=== PATIENT | male | born 1980 ===

== ENCOUNTER 2017-03-27 20:03 | Emergency (ER) | payer SELFPAY ==
[~2017-03-27] VITALS: Ht 172.7 cm; Wt 60.0 kg
[2017-03-27 20:04] VITALS: BP 133/88; PULSE 92; RESP 16; TEMP 98.3; O2SAT 100
--- NOTE | 2017-03-27 21:23 | PD ---
Physical Exam Date Seen by Provider: Mar 27, 2017 Time Seen by Provider: 21:20 Narrative 36 y/o male here with 1 week of worsening chest pains, weakness, chills and SOB. Recently evicted and living on [address] . Pain is 5/10 States no appetite. reports 2 episodes vomiting 2 days ago. States he is depressed but not suicidal. Vital signs reviewed. Patient stable. Awaiting Bed placement. Data Data Last Documented VS Vital Signs Date Time Temp Pulse Resp B/P Pulse Ox O2 Delivery O2 Flow Rate FiO2 03/27/17 20:04 98.3 92 16 133/88 100 Room Air [facility] Medical Record Reviewed: Yes Supervised Visit with JAMES: Yes Scripts No Active Prescriptions or Reported Meds Condition: Stable [place] Mar 27, 2017 21:23
[2017-03-27 23:25] VITALS: BP 115/78; PULSE 73; RESP 18; O2SAT 97
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
[2017-03-27] MEDS ORDERED: ASPIRIN 81 MG CHEW TAB PO ONE (23:30)
[2017-03-27] MEDS ORDERED: SODIUM CHLORIDE 0.9% FLUSH 10 ML FLUSH IVF PRN (23:30)
[2017-03-27] MEDS ORDERED: SODIUM CHLOR 0.9% 1000 ML INJ 1,000 ML IV ONE (23:30)
[2017-03-27 23:45] VITALS: RESP 18; O2SAT 98
[2017-03-27 23:49] LABS: BASOPHIL # 0.1 TH/MM3 (0-0.2); BASOPHIL % 0.9 % (0.0-2.0); EOSINOPHIL # 0.2 TH/MM3 (0-0.4); HEMATOCRIT 40.8 % (39.0-51.0); HEMO FLAGS DIFF FINAL; LYMPH % 27.4 % (9.0-44.0); MEAN CELL VOLUME 85.8 FL (80.0-100.0); MEAN CORPUSCULAR HEMOGLOBIN 29.5 PG (27.0-34.0); MEAN CORPUSCULAR HGB CONC 34.4 % (32.0-36.0); MONO % 13.4 % (0.0-8.0); NEUT % 55.3 % (16.0-70.0); PLATELET COUNT 277 TH/MM3 (150-450); RED BLOOD COUNT 4.76 MIL/MM3 (4.50-5.90); RED CELL DISTRIBUTION WIDTH 13.6 % (11.6-17.2); WHITE BLOOD COUNT 7.2 TH/MM3 (4.0-11.0)
--- NOTE | 2017-03-27 23:51 | RADRPT ---
EXAM DATE/TIME: 03/27/2017 23:33 [place] COMPARISON: No previous studies available for comparison. INDICATIONS : Chest pain. MEDICAL HISTORY : None. SURGICAL HISTORY : None. ENCOUNTER: Initial ACUITY: 1 day PAIN SCORE: 0/10 LOCATION: Bilateral chest FINDINGS: A single view of the chest demonstrates the lungs to be symmetrically aerated without evidence of mas s, infiltrate or effusion. The cardiomediastinal contours are unremarkable. Osseous structures are intact. CONCLUSION: No acute disease. Telly Zarate MD on March 27, 2017 at 23:49 Board Certified Radiologist. This report was verified electronically.
[2017-03-28 00:03] LABS: APTT (PATIENT) 28.9 SEC (24.3-30.1); PROTHROMBIN TIME - PATIENT 10.9 SEC (9.8-11.6)
[2017-03-28 00:19] LABS: ANION GAP 5 MEQ/L (5-15); BICARBONATE 27.9 MEQ/L (21.0-32.0); BLOOD UREA NITROGEN 5 MG/DL (7-18); CHLORIDE 106 MEQ/L (98-107); GLOMERULAR FILTRATION RATE 148 ML/MIN (>89); POTASSIUM 3.9 MEQ/L (3.5-5.1); SODIUM (NA) 139 MEQ/L (136-145)
[2017-03-28 00:25] LABS: CREATINE KINASE 79 U/L (39-308)
[2017-03-28 03:58] VITALS: BP 122/71; PULSE 88; RESP 18; O2SAT 98
[2017-03-28 08:02] LABS: AMPHETAMINE, URINE POS (NEG); BARBITURATES, URINE NEG (NEG); COCAINE, URINE NEG (NEG)
[2017-03-28 09:19] VITALS: BP 129/68; PULSE 83; RESP 16; O2SAT 98
--- NOTE | 2017-03-28 15:35 | EKG ---
Date Performed: 03/27/2017 Time Performed: 23:34:06 PTAGE: 36 years EKG: Sinus rhythm POSSIBLE RIGHT VENTRICULAR CONDUCTION DELAY EARLY REPOLARIZATION BORDERLINE ECG NO PREVIOUS TRACING DOCTOR: Mark Tracey Interpretating Date/Time 03/28/2017 15:33:20
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
== END 2017-03-28 13:19 | disposition home or self-care (01) ==
LOC: NEPC 20:03
DX: R07.89 Other chest pain (principal); R53.1 Weakness; F19.10 Other psychoactive substance abuse, uncomplicated; Z59.0 Homelessness; F17.290 Nicotine dependence, other tobacco product, uncomplicated
CPT/HCPCS: 71010; 80048; 80307; 82550; 84484; 85025; 85379; 85610; 85730; 93005; 96360; 99285; J7030